=== PATIENT | male | born 1970 | race Caucasian/White ===

== ENCOUNTER 2017-01-24 13:00 | Outpatient (CLI) | payer OTHER | END 2017-01-24 13:01 | disposition critical access hospital (66) | DX: R46.89 Other symptoms and signs involving appearance and behavior (principal) | CPT/HCPCS: A0425; A0429 ==

== ENCOUNTER 2017-01-24 13:32 | Emergency (ER) | payer OTHER ==
--- NOTE | 2017-01-24 13:43 | ED Physician Documentation ---
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 He feels they both were trying to push "buttons" about his anxiety and kept making it worse. He did eventually take a Ativan Rx for this type of situation and started feeling better. His called EMS as the patient did not feel comfortable driving into ED when feeling anxious. Improved enroute with EMS from meds and removed from situation.) Similar symptoms before: Diagnosis (depression and anxiety attacks. He says he is feeling generally better since starting new medication about a 1 1/2 weeks ago but is still on the increaing dose phase and is not at full strength yet. ( Buprioprion)) Recently seen: Clinic (seen by PCP 1 1/2 weeks ago and saw his counselor last week, with next appt in 2 weeks.) Review of Systems Constitutional: denies: Fever, Chills Nose: denies: Rhinorrhea / runny nose, Congestion Throat: denies: Sore throat Cardiac: denies: Chest pain / pressure, Palpitations, Pedal edema, Calf pain Respiratory: denies: Dyspnea, Cough, Wheezing GI: denies: Abdominal Pain, Nausea, Vomiting, Diarrhea : denies: Dysuria, Frequency Skin: denies: Rash, Lesions Neurologic: denies: Focal weakness, Numbness, Near syncope, Headache, Head injury PD PAST MEDICAL HISTORY - Past Medical History Past Medical History: Yes Cardiovascular: None Respiratory: None Neuro: None Endocrine/Autoimmune: None GI: None : None HEENT: None Psych: Depression, Anxiety Musculoskeletal: Rheumatoid arthritis, Chronic back pain Derm: None - Past Surgical History Past Surgical History: Yes Ortho: Arthroscopic surgery - Present Medications Home Medications: Ambulatory Orders Medication Instructions Recorded Confirmed Baclofen 2 mg PO DAILY 11/11/15 11/11/15 Diclofenac Sodium 1 mg PO DAILY 11/11/15 11/11/15 Metronidazole [Flagyl] 500 mg PO BID #14 tablet 11/11/15 Sertraline [Zoloft] 1 mg PO DAILY 11/11/15 11/11/15 Sulfamethoxazole/Trimethoprim 1 each PO BID #14 tablet 11/11/15 [Sulfamethoxazole-Tmp Ds Tablet] - Allergies Allergies/Adverse Reactions: Allergies Allergy/AdvReac Type Severity Reaction Status Date / Time Penicillins Allergy Rash Verified 11/11/15 20:53 - Social History Does the pt smoke?: No Smoking Status: Never smoker Does the pt drink ETOH?: No Does the pt have substance abuse?: No - Immunizations Immunizations are current?: No Immunizations: TDAP >10years/unknown - POLST Patient has POLST: No PD ED PE NORMAL - Vitals Vital signs reviewed: Yes - General General: Alert and oriented X 3, No acute distress (seems calm and relaxed here) , Well developed/nourished - HEENT HEENT: Pharynx benign - Neck Neck: Supple, no meningeal sign, No adenopathy - Cardiac Cardiac: RRR, No murmur - Respiratory Respiratory: Clear bilaterally - Derm Derm: Normal color, Warm and dry, No rash - Neuro Neuro: Alert and oriented X 3, No motor deficit, Normal speech - Psych Psych: Normal affect. No: Normal mood (slightly sad but good interpersonal skills and openly discussed his situation.) Results - Vitals Vitals: Vital Signs - 24 hr 01/24/17 16:53 Heart Rate 80 Respiratory 14 Rate Blood Pressure 136/63 H O2 Saturation 98 Oxygen O2 Source Room air PD MEDICAL DECISION MAKING - ED course Complexity details: considered differential (had anxeity with emotional stress today but feeling more relaxed now. Denies current suicidality but says he has vague ideation at times. 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 Offered to patient to talk with SW about situation and resources. He would like that. He waited a little bit of time for SW to become free and then they talked. Patient felt okay at time of discharge. ), d/w patient Departure - Departure Disposition: 01 Home, Self Care Clinical Impression: Anxiety attack, Depressive disorder Condition: Stable Record reviewed to determine appropriate education?: Yes Instructions: ED Stress React Follow-Up: Palak Beasley ARNP [Primary Care Provider] - Comments: Continue current medications. Drink lots of fluids. Follow up Counseling regarding stress reduction techniques, breathing exercises, etc for use in panic attacks and generally. Discharge Date/Time: 01/24/17 16:52
[2017-01-24 16:53] VITALS: BP 136/63
== END 2017-01-24 16:52 | disposition home or self-care (01) ==
LOC: EDUNIT# → ED 13:32
DX: F41.9 Anxiety disorder, unspecified (principal); F32.9 Major depressive disorder, single episode, unspecified
CPT/HCPCS: 99283

== ENCOUNTER 2018-12-20 09:12 | Outpatient (CLI) | payer OTHER | END 2018-12-20 09:13 | disposition home or self-care (01) | LOC: DI 09:12 | PROVIDERS: ATTEND Registered Nurse | DX: R00.2 Palpitations (principal) | CPT/HCPCS: 93306 ==

== ENCOUNTER 2019-01-05 12:31 | Outpatient (CLI) | payer OTHER ==
--- NOTE | 2019-01-05 14:00 | CARDIAC PROCEDURE NOTE ---
DATE OF SERVICE: 01/05/2019 Physician: Maria Esther Steiner MD, [facility] INDICATIONS: PVCs. CARDIAC RISK FACTORS: Male gender, family history of heart disease. DESCRIPTION OF PROCEDURE: After signing informed consent, the patient underwent a Nehemiah-protocol stress test. No imaging was ordered with this test. RESTING HEART RATE: 59. PEAK HEART RATE: 174 (100% predicted maximum heart rate for age). RESTING BLOOD PRESSURE: 140/78. PEAK BLOOD PRESSURE: 200/65. Patient exercised for 11 minutes and 39 seconds on a Nehemiah-protocol treadmill stress test. He achieved a peak heart rate of 174 (100% PMHR) and 13.5 METS. Patient had mild shortness of breath, no chest pain and rated his exertion at 14/20 at peak. Patient felt 1 episode of a "skipped beat" and this was associated with 1 single premature depolarization (probable PAC) associated with his symptom. There were no other episodes of palpitaion symptoms. There were no other dysrhythmias seen. RESTING EKG: Normal sinus rhythm, early repolarization (normal variant), and within normal limits. EKG AT PEAK: No new ST segment or T-wave changes to suggest ischemia. SUMMARY 1. Excellent exercise tolerance. 2. Symptom was associated with a possible PAC. 3. No imaging was ordered with this test. 4. Low cardiac risk, based on the above test results. cc: FITO Alvarado TD: 01/05/2019 13:48 MTDD
== END 2019-01-05 12:32 | disposition home or self-care (01) ==
LOC: DI 12:31
PROVIDERS: ATTEND Registered Nurse
DX: I49.3 Ventricular premature depolarization (principal); Z82.49 Family history of ischemic heart disease and other diseases of the circulatory system

== ENCOUNTER 2019-01-13 14:39 | Outpatient (CLI) | payer OTHER ==
[2019-01-14 14:02] LABS: HIV AG/AB 4TH GEN NON-REACTIVE (NON-REACTIVE)
== END 2019-01-13 14:40 | disposition home or self-care (01) ==
LOC: LAB 14:39
PROVIDERS: ATTEND Registered Nurse
DX: R61 Generalized hyperhidrosis (principal)
CPT/HCPCS: 36415; 81599; 86480; 87389

== ENCOUNTER 2019-11-30 14:00 | Outpatient (CLI) | payer OTHER ==
--- NOTE | 2019-12-01 08:53 | XRAY Report ---
Reason: RHEUMATOID ARTHRITIS, UNSPECIFIED Procedure Date: 11/30/2019 Accession Number: [id number] / [id number] Procedure: XR - Hips 2V BILAT CPT Code: Final Report FULL RESULT: EXAM: BILATERAL HIP RADIOGRAPHY EXAM DATE: 11/30/2019 02:59 PM. CLINICAL HISTORY: Rheumatoid arthritis, unspecified. COMPARISON: None. TECHNIQUE: 2 views each. FINDINGS: Bones: Bone mineralization within normal limits. No fractures or bone lesion. Right Hip: . No dislocation. The hip joint space is preserved. Left Hip: . No dislocation. The hip joint space is preserved. Soft Tissues: Surgical coils and clips in the right true pelvis. IMPRESSION: No significant degenerative changes identified. RADIA
== END 2019-11-30 14:01 | disposition home or self-care (01) ==
LOC: DI 14:00
PROVIDERS: ATTEND Registered Nurse
DX: M06.9 Rheumatoid arthritis, unspecified (principal)
CPT/HCPCS: 73521